=== PATIENT | male | born 1965 | race Caucasian/White ===

== ENCOUNTER 2025-05-06 19:15 | Observation (INO) | payer OTHER, SELFPAY ==
[2025-05-06 19:16] VITALS: BMI 35.4
--- NOTE | 2025-05-06 19:32 | EKG_ITS ---
[facility] Test Date: 2025-05-06 Pat Name: BERNADETTE FLORES Department: Room: - Gender: Male Mold Filler: : 1965 Requested By: Conchis Merino Order Number: [id number] Reading MD: Conchis Merino Measurements Intervals [place] Rate: 97 P: 76 [place]: 182 QRS: 70 QRSD: 101 T: 65 QT: 328 QTc: 417 Interpretive Statements SINUS RHYTHM Compared to ECG 10/19/2023 11:01:50 Incomplete right bundle-branch block no longer present T-wave abnormality no longer present Possible ischemia no longer present /store/S0/[id number]/ecg/[id number].pdf
--- NOTE | 2025-05-06 19:32 | XR_ITS ---
Examination: AP chest single view TECHNIQUE: AP semiupright portable chest single view Date and time: May 06, 20252025 hours INDICATIONS: Sepsis fever today. FINDINGS: Mild enlargement cardiac contour. Mild vascular congestion. No lobar pneumonia or pulmonary edema IMPRESSION: No lobar pneumonia or pulmonary edema
--- NOTE | 2025-05-06 19:33 | PD.EDFEVER ---
ED Fever RME/HPI General Chief Complaint: Altered Mental Status Stated Complaint: VERY DISORIENTED Time Seen by Provider: 05/06/25 19:32 Arrival date/time: 05/06/25 19:15 RME / HPI RME / HPI Narrative: DR. SPRINGER MAIN ED EVALUATION: 59 y/o male with Hx of Smoking, HTN and Type II DM presents to ED c/o fever and confusion x 1 hour. Per girlfriend, patient has not been feeling well for a couple of days. 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 Girlfriend also states that patient ferguson not have healthy diet. Related Data Home Medications ?Medication ?Instructions ?Recorded ?Confirmed nebivolol 10 mg tablet (Bystolic) 10 mg PO QDAY 10/21/23 10/21/23 Allergies Allergy/AdvReac Type Severity Reaction Status Date / Time No Known Allergies Allergy Verified 05/06/25 19:16 Review of Systems Review of Systems Systems Reviewed: All systems reviewed, normal except as documented Past Medical History Past Medical History CARDIAC: Positive Hypertension RESPIRATORY: Positive Asthma ENDOCRINE: Positive Diabetes Mellitus Type 2 Social History SMOKING STATUS: Current some day smoker Physical Exam Narrative Physical exam: GENERAL APPEARANCE: alert and oriented x 4, well-developed, well-nourished, no acute distress VITALS: All vitals were reviewed and the pulse ox is 96% on room air, which is normal according to my interpretation. HEENT: Normocephalic, atraumatic; pupils equal, round, reactive to light; EOMI; mucous membranes pink, moist; oropharynx clear NECK: Supple LUNGS: CTABL; no wheezes, no rales, no rhonchi HEART: Tachycardic, regular rhythm; normal S1, S2; no murmurs ABDOMEN: non distended; normal BS; soft, no tenderness, no guarding, no rebound; no masses, no organomegaly, no hernia BACK: no CVA tenderness EXTREMITIES: atraumatic; no edema NEUROLOGIC: awake; alert and oriented x4; cranial nerves II-XII grossly intact; no focal sensory or motor deficits PSYCHIATRIC: appropriate mood and affect SKIN: warm to touch, dry, normal color; no rashes, pleathered appearance Course Course Course Narrative: CXR is ordered for determining the etiology of shortness of breath. Quality Measures none Orders Category Date Time Status COVID-19 Screening Questionnaire NOW Care 05/06/25 22:35 Active [employer] V[employer] Installer NOW Care 05/06/25 19:32 Active Cooling Measures NEEDED Care 05/06/25 19:54 Active EKG (ED ONLY) *Do not use* NOW Care 05/06/25 19:[address] head/brain wo con Stat Exams 05/06/25 19:55 Completed EKG (ED Only) Stat Exams 05/06/25 19:32 Draft XR chest 1V portable Stat Exams 05/06/25 19:32 Completed ABG [Arterial Blood Gas] Stat Lab 05/06/25 21:21 Completed Alcohol, Blood Medical Stat Lab 05/06/25 19:30 Completed B-Type Natriuretic Peptide Stat Lab 05/06/25 19:30 Completed Blood Culture (Lab) Stat Lab 05/06/25 19:30 Received CBC Stat Lab 05/06/25 19:30 Completed CK [Creatine Kinase] Stat Lab 05/06/25 19:30 Completed Comprehensive Metabolic Panel Stat Lab 05/06/25 19:30 Completed Drug Screen,Urine Stat Lab 05/06/25 19:30 Completed Lactate (Lactic Acid) Stat Lab 05/06/25 19:30 Completed Lipase Stat Lab 05/06/25 19:30 Completed Magnesium Stat Lab 05/06/25 19:30 Completed Partial Thromboplastin Time Stat Lab 05/06/25 19:30 Completed Procalcitonin Stat Lab 05/06/25 19:30 Completed Prothrombin Time with INR Stat Lab 05/06/25 19:30 Completed Troponin I Stat Lab 05/06/25 19:30 Completed Urinalysis Stat Lab 05/06/25 19:30 Completed Urine Culture Stat Lab 05/06/25 19:40 Received Acetaminophen Ivpb [Ofirmev Inj] Med 05/06/25 19:33 Discontinued 1,000 mg in 100 ml IV X1 Magnesium Sulfate 4 GM Ivpb [Magnesium Sulfate Ivpb] Med 05/06/25 20:49 Active 4 gm in 50 ml IV X1 Sodium Chloride 0.9% 1000 ml [Ns] 1,000 ml Med 05/06/25 19:54 Discontinued IV 999 mls/hr Oxygen Delivery NOW RT 05/06/25 21:04 Active Vital Signs Vital signs: Vital Signs Temperature 103.2 F H 05/06/25 19:39 Pulse Rate 102 H 05/06/25 19:39 Respiratory Rate 26 H 05/06/25 19:39 Blood Pressure 116/53 L 05/06/25 19:39 Pulse Oximetry (%) 91 L 05/06/25 19:39 Oxygen Delivery Method Room Air 05/06/25 19:39 Fever MDM Narrative MDM Narrative:: Scribe Attestation: I, Annie Pamela, am scribing for and in the presence of Dr. Springer. Provider Notation: Although this document has been carefully reviewed, there may still be some phonetic and other typographical errors.? These errors are purely grammatical due to imperfections in the software program and should not be construed in any way to? compromise the substance of the patient's medical care during this visit. Patient data External records reviewed:: [facility] previous records (Reviewed prior ED records from 10/19/23. Patient was seen for Altered mental status.) Clinical information provided by:: patient and other (specify) (Girlfriend) Social determinants that could affect healthcare access:: none Patient has the following chronic illnesses:: Hypertension, Asthma, Diabetes Mellitus Type 2 How is presenting disease/condition affected by chronic disease/condition?: exacerbated by Evaluation data The following diagnostics were reviewed and interpreted by me:: lab results, radiology exam(s) and EKG tracing(s) (EKG manual reading, my interpretation: sinus rhythm, rate: 97 bpm, no ST elevation, no acute ischemic changes, interpreted as normal.) Lab and/or radiology exams considered but not ordered:: None Interpretation Summary: RADIOLOGY Chest X-Ray: FINDINGS: Mild enlargement cardiac contour. Mild vascular congestion. No lobar pneumonia or pulmonary edema IMPRESSION: No lobar pneumonia or pulmonary edema Head/Brain CT: Findings: No significant ventricular enlargement. Intra-axial or extra-axial hemorrhage density is not seen. No mass effect or midline shift Basal cisterns are not remarkable. Fourth ventricle is midline. Cranial vault intact. Impression: Negative for acute hemorrhage, mass effect or midline shift Advise clinical correlation and follow up accordingly Medications / Prescriptions Medications or Prescriptions considered but not ordered:: None Medication administrations:: Medication Administration History Magnesium Sulfate (Magnesium Sulfate Ivpb) 4 gm in 50 mls @ 12.5 mls/hr IV X1 ONE Stop: 05/07/25 00:48 Last Admin: 05/06/25 20:59 Dose: 12.5 mls/hr Documented By: BD Discontinued Medications Acetaminophen (Ofirmev Inj) 1,000 mg in 100 mls @ 250 mls/hr IV X1 ONE Stop: 05/06/25 19:56 Last Infusion: 05/06/25 20:04 Dose: Infused Documented By: Admin: 05/06/25 19:39 Dose: 250 mls/hr Documented By: BD Sodium Chloride (Ns) 1,000 mls @ 999 mls/hr IV .Q1H1M ONE Stop: 05/06/25 20:54 Last Infusion: 05/06/25 20:58 Dose: Infused Documented By: Admin: 05/06/25 19:57 Dose: 999 mls/hr Documented By: BD See above Consultations Consultation(s) initiated? (list below): Yes Consultation #1 (Physician, Specialty, Details): Discussed with resident for Dr. Mejias for admission. Reviewed the patient?s HPI, PMHx, lab and/or radiology results. Discussed treatment plan. Will consult an admission to the hospitalist. Time: 22:15 Diagnosis Fever Differential Diagnosis: fever of unknown origin, community acquired pneumonia, pyelonephritis, viral infection, sepsis and influenza Most likely diagnosis given after review of the tests above:: AMS, Fever, Heat exhaustion Admission Indicated Admission indicated?: indicated Explain why admission is indicated or not indicated:: AMS, Fever, Heat exhaustion Admission Request Was there a request for admission?: Yes Admission Attestation Admission request attestation: Discussed case with [] from Hospitalist service regarding admission. Discussed patients ED course, exam findings, labs, and radiology results. The Hospitalist [agrees,declines] to accept the patient for admission. Disposition Plan Disposition Plan: Admit Discharge Plan Plan Patient Disposition: Admit Acute Care w/in Hospital Prescriptions/Referrals Prescriptions/Med Rec: No Action nebivolol [Bystolic] 10 mg Tablet 10 mg PO QDAY Referrals: No Primary/Family,Physician [Primary Care Provider] - In 1 week Problem List Clinical Impression: Altered mental status, Fever, Heat exhaustion Patient/Caregiver Discharge Instructions Print Language: Amharic Stand Alone Forms: Jenna Award Info., Patient Portal Info Letter
[2025-05-06 19:39] VITALS: BP 116/53; PULSE 102; RESP 26; TEMP 39.6; O2SAT 91
[2025-05-06] MEDS: ACETAMINOPHEN IVPB 1,000 MG/100 ML VIAL 250 MG IV (19:39)
--- NOTE | 2025-05-06 19:55 | XR_ITS ---
Examination: CT brain head without contrast. 2-D sagittal coronal reconstructions Date and time of exam:May 06, 2025 2018 hours Comparison October 19, 2023. INDICATIONS: Onset altered mental status today CTDI: vol (mGy):56 DLP: (mGycm):1148 Technique: Multiple CT axial sections of the brain have been obtained, 5 mm slice thickness. Contrast has not been administered. 2-D sagittal, coronal reconstructions have been obtained Low dose protocols were performed. One or more of the following dose reduction techniques were used; automated exposure control, adjustment of the mA and/or KV according to patient size, use of iterative reconstruction technique. Findings: No significant ventricular enlargement. Intra-axial or extra-axial hemorrhage density is not seen. No mass effect or midline shift Basal cisterns are not remarkable. Fourth ventricle is midline. Cranial vault intact. Impression: Negative for acute hemorrhage, mass effect or midline shift Advise clinical correlation and follow up accordingly
[2025-05-06] MEDS: SODIUM CHLORIDE 0.9% 1000 ML 1,000 ML 999 ML IV (19:57)
[2025-05-06 20:04] VITALS: TEMP 37.5
[2025-05-06 20:10] LABS: Basophils # (Auto) 0.1 Thou/mm3 (0.0-0.2); Basophils % (Auto) 1 % (0-2.5); Eosinophils # (Auto) 0.2 Thou/mm3 (0.0-0.5); Eosinophils % (Auto) 2 % (0-10); Hematocrit 46.4 % (41.0-53.0); Hemoglobin 15.3 g/dL (13.5-16.0); Immature Granulocytes Auto 0.02 Thou/mm3 (0.00-0.00); Lactate (Lactic Acid) 1.9 mMol/L (0.4-2.0); Lymphocytes # (Auto) 0.9 Thou/mm3 (1.0-4.8); Lymphocytes % (Auto) 9 % (10-50); Mean Corpuscular HGB Conc 33.0 g/dl (31.0-37.0); Mean Corpuscular Hemoglobin 30.8 pg (25.0-35.0); Mean Corpuscular Volume 94 fL (80-100); Monocytes # (Auto) 1.1 Thou/mm3 (0.0-0.8); Monocytes % (Auto) 12 % (0-12); Neutrophils # (Auto) 7.2 Thou/mm3 (1.8-7.7); Neutrophils % (Auto) 76 % (37-80); Nucleated Red Blood Cell # 0.00 Thou/mm3 (0.00-0.00); Nucleated Red Blood Cell % 0 /100 WBC (0); Platelet Count 160 Thou/mm3 (140-440); RDW Standard Deviation 46.3 fL (35.1-43.9); Red Blood Count 4.96 Miln/mm3 (4.50-5.90); White Blood Count 9.4 Thou/mm3 (3.8-10.6)
[2025-05-06 20:11] LABS: Collection Type, Urine Clean Catch
[2025-05-06 20:18] LABS: Bilirubin,Urine Negative (Negative); Blood,Urine Negative (Negative); Clarity,Urine Clear (Clear/Hazy); Color,Urine Lt Yellow (Lt Yel-Yel); Glucose, Urine 2+ (Negative); Ketones,Urine Negative (Negative); Leukocyte Esterase,Urine Negative (Negative); Nitrite,Urine Negative (Negative); PH,Urine 6.0 (5.0-7.0); Protein,Urine Negative (Neg - Trace); Specific Gravity,Urine <= 1.005 (1.001-1.035); Urobilinogen,Urine 0.2 mg/dL (0.0-1.0)
[2025-05-06 20:25] LABS: B-Type Natriuretic Peptide 38 pg/mL (0-100)
[2025-05-06 20:28] LABS: INR 1.0 (0.9-1.3); Partial Thromboplastin Time 30.5 Seconds (22.0-36.0); Prothrombin Time 11.0 Seconds (9.0-12.2)
[2025-05-06 20:42] LABS: Alanine Aminotransferase 17 U/L (10-49); Albumin, Serum 4.1 gm/dL (3.5-5.0); Albumin/Globulin Ratio 1.9 (1.2-2.2); Alcohol, Blood Medical < 3.0 mg/dL (0-10.0); Alkaline Phosphatase 90 U/L (46-116); Anion Gap 11 (7-16); Aspartate Amino Transferase 20 U/L (0-34); BUN/Creatinine Ratio 22 Ratio (12-20); Bilirubin,Total 0.2 mg/dL (0.3-1.2); Blood Urea Nitrogen 20 mg/dL (9-23); Calcium 9.2 mg/dL (8.3-10.6); Calcium (Corrected) 9.2 mg/dL (8.5-10.1); Carbon Dioxide 24.4 mMol/L (20.0-31.0); Chloride 105 mMol/L (98-107); Creatine Kinase 59 U/L (34-171); Creatinine (Component) 0.9 mg/dL (0.6-1.3); Estimated Creatinine Clearance 108.8 mL/min (>60); Globulin 2.2 gm/dL (2.3-3.5); Glucose 163 mg/dL (74-106); Lipase 27 U/L (12-53); Magnesium 1.1 mg/dL (1.6-2.6); Osmolality,Calculated 286 (275-295); Potassium 3.9 mMol/L (3.4-5.1); Procalcitonin 0.30 ng/ml (0.0-0.49); Sodium 140 mMol/L (136-145); Total Protein 6.3 gm/dL (5.7-8.2); Troponin I < 0.002 ng/mL (0.0-0.045); eGFR > 60 See Note
[2025-05-06] MEDS: Magnesium Sulfate 4 GM Ivpb 4 GM/50 ML BAG IV (20:59)
[2025-05-06 21:03] VITALS: BP 113/54; PULSE 88; RESP 16; TEMP 36.8; O2SAT 92
[2025-05-06 21:04] VITALS: PULSE 88; RESP 16; RESP 91; O2SAT 93
[2025-05-06 21:26] LABS: Allen Test Performed/OK; Base Excess 0 (-3-3); HCO3 26 mEq/L (20-26); Inspired O2, VO2 Liters 2 L/min; O2 Saturation 97 % (91-98); PCO2 47 mmHg (32.0-48.0); PO2 86 mmHg (83-108); Puncture Site Right Radial; pH, Arterial 7.35 (7.35-7.45)
[2025-05-06 21:41] LABS: Amphetamine/Methamp Scrn,U Negative (Negative); Barbiturate Screen,Urine Negative (Negative); Benzodiazepines Screen,Urine Negative (Negative); Benzoylecgonine Screen, Ur Negative (Negative); Fentanyl Screen,Urine Negative (Negative); Opiate Screen,Urine Positive (Negative); THC Screen,Urine Negative (Negative)
[2025-05-06 23:00] VITALS: BP 110/58; PULSE 83; RESP 16; TEMP 36.9; O2SAT 95
--- NOTE | 2025-05-06 23:35 | PD.RESHP ---
Documentation for date of: 05/06/25 [facility] History of Present Illness History of present illness: Miah Campos is a 59-year-old M with a significant past medical history of asthma, tobacco use, hypertension, type 2 diabetes, migraines presently on opioids, and JULIETH who presents today with altered mental status and hyperthermia. 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 She reports that he seemed like he was about to fall and that he would wander into random rooms and not respond to her when she asked why he was in the room. Girlfriend had to leave to take a phone call during the middle of the interview and patient could not recall what had occurred around the timeframe of interest. In the ED, vitals showed: BP 116/53 HR 102 RR 26 Temp 103.2 SpO2 91% on room air ED Course: CBC was unremarkable. CMP showed high glucose 163, and low magnesium 1.1. Last recorded A1c was 9.1 in September 2023. UA showed 2+ glucose and UDS was positive for opiates. Patient was given 1 L IV NS bolus and IV magnesium sulfate 4 gm x1. On Imaging: CXR, head CT, and EKG were all unremarkable. Patient was admitted for the work-up and management of altered mental status and hyperthermia. Review of Systems Review of Systems Narrative Review of Systems: General: Endorses fever. Denies night sweats, unexplained weight loss, chills HEENT: Denies congestion or sore throat Heart: Denies chest pain or palpitations Lungs: Denies shortness of breath or cough Abdomen: Denies abdominal pain, nausea, vomiting, constipation, diarrhea, or blood in stool Genitourinary: Denies frequency, urgency, dysuria, or hematuria Neurology: Denies any changes in vision, weakness or difficulty speaking Review of systems otherwise negative except what is mentioned above. Past Medical History Past Medical History CARDIAC: Positive Hypertension; Negative Cardiac Disorders or Congestive Heart Failure RESPIRATORY: Positive Asthma; Negative Chronic Obstructive Pulmonary Disease (COPD) GENITOURINARY: Negative Renal Disease ENDOCRINE: Positive Diabetes Mellitus Type 2; Negative Diabetes Mellitus Type 1 HEMATOLOGIC: Negative Sickle Cell Disease Social History SMOKING STATUS: Current some day smoker Past Medical History Comments PMH COMMENT: PMH: asthma, tobacco use, hypertension, type 2 diabetes, migraines presently on opioids, and JULIETH PSH: none Medications: nebivolol, Poth, Invokamet (metformin + canagliflozin), atorvastatin Allergies: none FH: dad of lung cancer (smoker), mother has T2DM and epilepsy, all 6 siblings have history of migraines SH: lives in a house in [place] with girlfriend, her daughter and 4 cats and 3 dogs, started smoking as a kid but has been on and off and length of time is not known (patient estimates that on average he smokes a pack a day), denies drinking or recreational drug use (current admission UDS was positive for opiates) Exam Vital Signs Temp Pulse Resp BP Pulse Ox O2 Del Method O2 Flow Rate 98.4 F 83 16 110/58 L 95 Nasal Cannula 2 05/06/25 23:00 05/06/25 23:00 05/06/25 23:00 05/06/25 23:00 05/06/25 23:00 05/06/25 23:00 05/06/25 23:00 Narrative Exam Physical Exam: General: Somnolent at certain points during interview. No acute distress. Skin: Warm, dry, intact, no obvious rash. Head: Normocephalic, atraumatic. Eye: Normal conjunctiva, PERRL. Throat: Oral mucosa moist. No obvious lesions in oropharynx. Cardiovascular: Regular rate and rhythm, no murmur, +S1/S2. Respiratory: Lungs are clear to auscultation, respirations unlabored, no crackles, no wheezing. Gastrointestinal: Soft, nontender, non-distended. No guarding or rebound tenderness. Extremities: No edema, no cyanosis, no clubbing. 2+ radial pulse bilaterally, 2+ posterior tibial pulse bilaterally. Neuro: No focal deficits observed. Conversant, moving all extremities. No overt cerebellar signs/incoordination. Psychiatric: At times uncooperative, slightly irritable affect. Results: Labs 05/06/25 19:30 05/06/25 19:30 Labs: Short CBC 05/06/25 Range/Units 19:30 WBC 9.4 (3.8-10.6) Thou/mm3 Hgb 15.3 (13.5-16.0) g/dL Hct 46.4 (41.0-53.0) % Plt Count 160 (140-440) Thou/mm3 BMP 05/06/25 19:30 Sodium 140 Potassium 3.9 Chloride 105 Carbon Dioxide 24.4 BUN 20 Creatinine 0.9 Glucose 163 H Calcium 9.2 Cardiac Enzymes 05/06/25 Range/Units 19:30 Total Creatine Kinase 59 (34-171) U/L Troponin I < 0.002 (0.0-0.045) ng/mL Liver Function 05/06/25 Range/Units 19:30 Total Bilirubin 0.2 L (0.3-1.2) mg/dL AST 20 (0-34) U/L ALT 17 (10-49) U/L Alkaline Phosphatase 90 (46-116) U/L Albumin 4.1 (3.5-5.0) gm/dL Urine 05/06/25 Range/Units 19:30 Urine Color Lt Yellow (Lt Yel-Yel) Urine Clarity Clear (Clear/Hazy) Urine pH 6.0 (5.0-7.0) Ur Specific [place] <= 1.005 (1.001-1.035) Urine Protein Negative (Neg - Trace) Urine Glucose (UA) 2+ A (Negative) ABG Interpretation ABG results: 05/06/25 21:21 ABG pH 7.35 ABG pCO2 47 ABG pO2 86 ABG HCO3 26 ABG O2 Saturation 97 ABG Base Excess 0 Quality Measures Quality Measures none Medications Home Medications and Allergies Home Medications ?Medication ?Instructions ?Recorded ?Confirmed ?Type nebivolol 10 mg tablet (Bystolic) 10 mg PO QDAY 10/21/23 05/07/25 History Invokamet BID 05/07/25 History atorvastatin 20 mg tablet 20 mg PO QAM 05/07/25 05/07/25 History budesonide-formoterol HFA 160 inhalation 05/07/25 History mcg-4.5 mcg/actuation aerosol inhaler (Symbicort) hydrocodone 10 mg-acetaminophen tab 05/07/25 History 325 mg tablet ibuprofen 800 mg tablet mg 05/07/25 History pregabalin 300 mg capsule mg PO BID 05/07/25 History semaglutide 1 mg/dose (4 mg/3 mL) mg subcut QWEEK 05/07/25 History subcutaneous pen injector (Ozempic) tadalafil 5 mg tablet 5 mg PO QDAY 05/07/25 05/07/25 History tramadol 100 mg tablet,extended mg PO 05/07/25 History release 24 hr Allergies Allergy/AdvReac Type Severity Reaction Status Date / Time No Known Allergies Allergy Verified 05/06/25 19:16 Visit Medications Acetaminophen (Acetaminophen 325 Mg Tablet) 650 mg PO Q6H PRN PRN Reason: PAIN SCALE 1-3 (mild Stop: 06/05/25 23:11 Dextrose (Dextrose 50%-Water Inj 50 Ml Syringe) 25 ml IV Q15MIN PRN PRN Reason: BG 50-70 responsive npo pt Stop: 06/05/25 23:23 Dextrose (Dextrose 50%-Water Inj 50 Ml Syringe) 50 ml IV Q15MIN PRN PRN Reason: BG <50 OR BG <70 & pt unresponsive Stop: 06/05/25 23:23 Glucagon (Glucagon Inj 1 Mg Vial) 1 mg IM Q15MIN PRN PRN Reason: BG <70, and no IV access Magnesium Sulfate (Magnesium Sulfate Ivpb) 4 gm in 50 mls @ 12.5 mls/hr IV X1 ONE Stop: 05/07/25 00:48 Last Admin: 05/06/25 20:59 Dose: 12.5 mls/hr Magnesium Sulfate (Magnesium Sulfate Ivpb) 4 gm in 50 mls @ 12.5 mls/hr IV X1 ONE Stop: 05/07/25 04:59 Insulin Human Lispro (Insulin Lispro (Admelog) 1 Unit/0.01 Ml Unit) 0 unit SC [facility]; Protocol Stop: 06/06/25 07:29 Ondansetron HCl (Ondansetron Inj 2 Mg/Ml Inj 2 Ml) 4 mg IVP Q6H PRN; Protocol PRN Reason: NAUSEA OR VOMITING Stop: 06/05/25 23:11 Sennosides (Senna Tablet) 1 tab PO QDAY PRN; Protocol PRN Reason: constipation Stop: 06/05/25 23:11 Discontinued Medications Acetaminophen (Ofirmev Inj) 1,000 mg in 100 mls @ 250 mls/hr IV X1 ONE Stop: 05/06/25 19:56 Last Infusion: 05/06/25 20:04 Dose: Infused Sodium Chloride (Ns) 1,000 mls @ 999 mls/hr IV .Q1H1M ONE Stop: 05/06/25 20:54 Last Infusion: 05/06/25 20:58 Dose: Infused Assessment & Plan Assessment Miah Campos is a 59-year-old M with a PMH of T2DM and chronic migraines who presents today with altered mental status and hyperthermia. Patient was admitted for the work-up and management of altered mental status and hyperthermia. #Altered mental status #Heat Stroke Working Dx: altered mental status 2/2 likely heat stroke in the setting of hyperthermia and heavy sun exposure Differential Dx: substance-induced AMS Patient seems much improved s/p fluid resuscitation and vitals have stabilized, supporting the clinical diagnosis of possible heat stroke Patient's UDS was positive for opiates but lack of other findings make it less likely that his current presentation is due to intoxication or withdrawal from opiates. Head CT was unremarkable. -Started q4H neuro checks -Continue to monitor for symptoms, will discharge tomorrow morning if symptom-free #Hypomagnesemia Upon admission, patient's magnesium was low at 1.1. -Ordered IV magnesium sulfate 4 gm (2nd administration) #T2DM Upon admission, patient had a high blood glucose of 163 with 2+ urine glucose. Last recorded A1c was 9.1 in September 2023. -Started insulin sliding scale Hospital Management: Disposition: being kept on observation s/p fluid resuscitation for AMS 2/2 likely heat stroke Fluids: none Diet: carbohydrate consistent Lines: none DVT Prophylaxis: SCDs [place]: not in place CODE STATUS: Full Code I have examined the patient and conferred with my attending, Dr. Mejias, and my senior resident, Dr. Roger, regarding them. Zack Galarza DO PGY-1 Internal Medicine Attending Provider Attestation/Addendum After examination of the patient and review of the clinical data I feel that this patient needs to be observed in the hospital for further treatment/evaluation. I have discussed and was present for the essential components of the history, physical examination, diagnosis, and treatment plan with the resident. I agree with the patient's care as documented by the resident and amended herein by me. Jim Mejias DO. Although this document has been carefully reviewed, there may still be some phonetic and other typographical errors. These errors are purely grammatical due to imperfections in the software program and should not be construed in any way to compromise the substance of the patient's medical care during this visit. Patient seen and evaluated in the ED. patient is a 59-year-old male with a significant past medical history of asthma, tobacco use, hypertension, type 2 diabetes, migraines presently on opioids, and JULIETH, presented to the ED for acute encephalopathy and fever. Patient works in construction, long days in the heat and today his girlfriend noticed that he was a bit disoriented, acting strange and delirious. He was not responding to questions appropriately. In the ED, patient was normotensive, patient tachycardic with a pulse of 102, respiratory rate 26, Tmax of 103.2 and saturating at 91% on room air. Patient was given fluids and passively cooled and did improve while he was in the ED. his mentation and vital signs returned to normal in the ED. Significant labs, largely unremarkable with exception of a magnesium of 1.1 which has been repleted. CK was also within normal limits. Chest x-ray and CT head were unremarkable. Patient admitted under observation to [facility] for what I suspect to be heatstroke although I believe it to be mild. Symptoms largely resolved at this time the patient is just a bit somnolent. Will continue to monitor the patient with morning labs and replete electrolytes as needed. The ED did draw blood cultures however low suspicion for infection. Patient can likely be discharged in the morning if he continues to clinically improve.
--- NOTE | 2025-05-07 00:41 | PC.NURSE ---
called dr. wang pt complaining 8/ pain headache he will add order for pain
[2025-05-07 01:17] VITALS: BP 144/80; PULSE 77; RESP 18; TEMP 36.2; O2SAT 92; BMI 34.4
--- NOTE | 2025-05-07 01:30 | PC.NURSE ---
re med rec- Advised pt to have family bring home med bottles in a.m.
[2025-05-07] MEDS: Magnesium Sulfate 4 GM Ivpb 4 GM/50 ML BAG IV (02:31)
[2025-05-07 04:00] VITALS: BP 110/56; PULSE 80; RESP 19; TEMP 36.7; O2SAT 95
[2025-05-07 06:19] LABS: Basophils # (Auto) 0.0 Thou/mm3 (0.0-0.2); Basophils % (Auto) 0 % (0-2.5); Eosinophils # (Auto) 0.1 Thou/mm3 (0.0-0.5); Eosinophils % (Auto) 1 % (0-10); Hematocrit 43.9 % (41.0-53.0); Hemoglobin 14.5 g/dL (13.5-16.0); Immature Granulocytes Auto 0.02 Thou/mm3 (0.00-0.00); Lymphocytes # (Auto) 1.6 Thou/mm3 (1.0-4.8); Lymphocytes % (Auto) 19 % (10-50); Mean Corpuscular HGB Conc 33.0 g/dl (31.0-37.0); Mean Corpuscular Hemoglobin 31.0 pg (25.0-35.0); Mean Corpuscular Volume 94 fL (80-100); Monocytes # (Auto) 1.1 Thou/mm3 (0.0-0.8); Monocytes % (Auto) 13 % (0-12); Neutrophils # (Auto) 5.7 Thou/mm3 (1.8-7.7); Neutrophils % (Auto) 66 % (37-80); Nucleated Red Blood Cell # 0.00 Thou/mm3 (0.00-0.00); Nucleated Red Blood Cell % 0 /100 WBC (0); Platelet Count 137 Thou/mm3 (140-440); RDW Standard Deviation 47.8 fL (35.1-43.9); Red Blood Count 4.68 Miln/mm3 (4.50-5.90); White Blood Count 8.6 Thou/mm3 (3.8-10.6)
--- NOTE | 2025-05-07 06:42 | PC.NURSE ---
pt asleep all night, easily arousable.
[2025-05-07 06:47] LABS: Alanine Aminotransferase 14 U/L (10-49); Albumin, Serum 3.6 gm/dL (3.5-5.0); Albumin/Globulin Ratio 1.6 (1.2-2.2); Alkaline Phosphatase 81 U/L (46-116); Anion Gap 9 (7-16); Aspartate Amino Transferase 18 U/L (0-34); BUN/Creatinine Ratio 17 Ratio (12-20); Bilirubin,Total 0.3 mg/dL (0.3-1.2); Blood Urea Nitrogen 12 mg/dL (9-23); Calcium 8.1 mg/dL (8.3-10.6); Calcium (Corrected) 8.4 mg/dL (8.5-10.1); Carbon Dioxide 26.4 mMol/L (20.0-31.0); Chloride 107 mMol/L (98-107); Creatinine (Component) 0.7 mg/dL (0.6-1.3); Estimated Creatinine Clearance 137.8 mL/min (>60); Globulin 2.3 gm/dL (2.3-3.5); Glucose 108 mg/dL (74-106); Magnesium 2.3 mg/dL (1.6-2.6); Osmolality,Calculated 283 (275-295); Phosphorous 1.7 mg/dL (2.4-5.1); Potassium 3.8 mMol/L (3.4-5.1); Sodium 142 mMol/L (136-145); Thyroid Stimulating Hormone 0.39 uIU/mL (0.55-4.78); Total Protein 5.9 gm/dL (5.7-8.2); eGFR > 60 See Note
[2025-05-07 06:51] LABS: Glucose Estimated Average 160 mg/dL (80-131); Hemoglobin A1C 7.2 % Hgb (4.8-6.0)
[2025-05-07 08:00] VITALS: BP 127/79; PULSE 77; RESP 18; TEMP 36.2; O2SAT 93
[2025-05-07 09:41] LABS: Free T4 (Free Thyroxine) 1.05 ng/dL (0.89-1.76)
[2025-05-07] MEDS: POT PHOS 15 mMol in NS 250 ML 15 MMOL/250 ML BAG 62.5 MMOL IV (10:05)
[2025-05-07] MEDS: CALCIUM CARBONATE 600 MG TABLET PO (11:30)
[2025-05-07] MEDS: NAPH,KPH MBDB 1 PACKET (1.5 GM) 2 PACKET PO (11:30)
[2025-05-07 12:00] VITALS: BP 153/90; PULSE 70; RESP 17; TEMP 36.2; O2SAT 96
--- NOTE | 2025-05-07 12:11 | PC.NURSE ---
Dr Matthews rounding per MD continue with dc and disregards all current med orders entered earlier.
--- NOTE | 2025-05-07 13:24 | ESDS_ITS ---
Planned Discharge Date 05/07/25 DS: Providers Provider Date of admission: 05/06/25 23:02 Primary care physician: Physician No Primary/Family Admitting Provider: Vishnu Mejias DO Attending Provider on Admission: Blake Isaac MD Consults: 05/07/25 01:29 Referral Registered Dietitian Routine Comment: Attending Provider on DC: Blake Isaac MD Discharging Provider: Blake Isaac MD Anticipated date of discharge: 05/07/25 DS: Diagnosis Problem List Completed Was Problem List Reviewed/Reconciled?: Yes Hospital Course Hospital Course Hospital course: Miah Campos is a 59-year-old M with a significant past medical history of asthma, tobacco use, hypertension, type 2 diabetes, migraines presently on opioids, and JULIETH who presented with altered mental status and hyperthermia. He was admitted for heat stroke. ED Course: vitals on admission BP 116/53 HR 102 RR 26 Temp 103.2 SpO2 91% on room air CBC was unremarkable. CMP showed high glucose 163, and low magnesium 1.1. Last recorded A1c was 9.1 in September 2023. UA showed 2+ glucose and UDS was positive for opiates. Patient was given 1 L IV NS bolus and IV magnesium sulfate 4 gm x1. On Imaging: CXR, head CT, and EKG were all unremarkable. Patient was admitted for the work-up and management of altered mental status and hyperthermia. Hospital Course: Patients hyperthermia, and altered mental status resolved during his stay following administraton of IV fluids and IV acetaminophen. His hypomagnesemia/electrolyte abnormalities were repleted with IV magnesium 4gm x2. He was also given potassium phosphate 15 mmol IV x1, calcium carbonate 600mg pox1, and potassium phos/sodium phos packet po x1. He is back to baseline upon discharge. Problem list: #Heat stroke (resolved) #Hypomagnesemia (resolved) #Electrolyte abnormalities (resolved) #T2DM (chronic) #Subclinical hypothyroidism Discharge Instructions: Follow up with PCP within one week Take your medicines as prescribed Encourage oral hydration and limit sun exposure Limit taking Ibuprofen, less than 2g in one day Return to ER if your symptoms worsen or return Repeat a CMP, magnesium and phosphorous panel within one week with your PCP If you spike a fever, 100.3 F, and or develop a headache, return to ER immediately Time Spent with Patient Time attestation: Total time spent providing and/or coordinating discharge services: Time spent: Greater than 30 minutes Exam Vital Signs Temp Pulse Resp BP Pulse Ox O2 Del Method O2 Flow Rate 97.1 F 77 18 127/79 93 L Nasal Cannula 1 05/07/25 08:00 05/07/25 08:00 05/07/25 08:00 05/07/25 08:00 05/07/25 08:00 05/07/25 08:00 05/07/25 08:00 Narrative Exam General: A&Ox4, NAD HEENT: Normocephalic, atraumatic, PERRL, EOMI Cardio: Normal S1, S2 Pulm: Lungs clear to auscultation bilaterally Abdominal: Abdomen soft with no TTP, rigidity, or guarding MSK: Strength 5/5 in bilateral upper and lower extremity Neuro: CN2-12 grossly intact, Strength 5/5 in bilateral upper and lower extremity Discharge Plan Plan Patient Disposition: HOME (Self Care) Patient condition on transfer: Stable Care Plan Goals: Discharge Instructions: Follow up with PCP within one week Take your medicines as prescribed Encourage oral hydration and limit sun exposure Limit taking Ibuprofen, less than 2g in one day Return to ER if your symptoms worsen or return Repeat a CMP, magnesium and phosphorous panel within one week with your PCP If you spike a fever, 100.3 F, and or develop a headache, return to ER immediately Prescriptions/Referrals Prescriptions/Med Rec: Continued Invokamet BID hydrocodone-acetaminophen 10-325 mg tablet ibuprofen 800 mg tablet budesonide-formoterol [Symbicort] 160-4.5 mcg/actuation HFA aerosol inhaler INHALATION Ozempic 1 mg/dose (4 mg/3 mL) pen injector SUBCUT QWEEK Patient Comments: QTuesdays atorvastatin 20 mg tablet 20 mg PO QAM tadalafil 5 mg tablet 5 mg PO QDAY nebivolol [Bystolic] 10 mg Tablet 10 mg PO QDAY Held tramadol 100 mg tablet extended release 24 hr PO Hold Instructions: resume with pcp pregabalin 300 mg capsule PO BID Hold Instructions: resume w/pcp Referrals: No Primary/Family,Physician [Primary Care Provider] - Patient/Caregiver Discharge Instructions Discharge Activity: activity as tolerated Education Materials: First Aid: Heat Exposure, ED Confusion Print Language: Malaysian Stand Alone Forms: Jenna Award Info., Patient Portal Info Letter, Work/Release Restrictions Discharge Order Discharge Orders: Discharge (Routine); Ordered 05/07/25 Ordered By: Laura Tello Quality Discharge Quality Measures VTE prophylaxis (Sequential compression device) Attestestation MD Attestation I have examined the patient, reviewed labs and imaging findings, discussed the case with the resident(s), and reviewed entered orders. I agree with the plan of care as outlined in this note. Time Spent: [address] Poncho MD
== END 2025-05-07 15:06 | disposition home or self-care (01) ==
LOC: SERX 22:30 → SERHOLD 05-07 00:59 → S3SX 05-07 01:45 → SERHOLD 05-07 08:58 → S3SX 05-07 08:59
PROVIDERS: Admitting Provider Student in an Organized Health Care Education/Training Program; Emergency Provider Emergency Medicine; Visit Provider Student in an Organized Health Care Education/Training Program
DX: T67.01XA Heatstroke and sunstroke, initial encounter (principal); J45.909 Unspecified asthma, uncomplicated; I10 Essential (primary) hypertension; G93.40 Encephalopathy, unspecified; G47.33 Obstructive sleep apnea (adult) (pediatric); F17.210 Nicotine dependence, cigarettes, uncomplicated; E83.42 Hypomagnesemia; E11.65 Type 2 diabetes mellitus with hyperglycemia; E87.8 Other disorders of electrolyte and fluid balance, not elsewhere classified; E03.8 Other specified hypothyroidism; Z01.810 Encounter for preprocedural cardiovascular examination
CPT/HCPCS: 36415; 36600; 70450; 71045; 80053; 80307; 80320; 81001; 82550; 82803; 83036; 83605; 83690; 83735; 83880; 84100; 84145; 84439; 84443; 84484; 85025; 85610; 85730; 87040; 87086; 87811; 96361; 96365; 96366; G0378; J0131; J3475; J7030; J7999; A9270; G0480